=== PATIENT | male | born 1945 | race African-American/Black ===

== ENCOUNTER 2022-06-23 11:57 | Day surgery (SDC) | payer OTHER ==
[2022-06-23 12:27] VITALS: RESP 18; BMI 21.7
[2022-06-23 13:01] VITALS: TEMP 98.1
[2022-06-23 13:32] VITALS: BP 123/78; PULSE 77
== END 2022-06-23 13:44 | disposition home or self-care (01) ==
LOC: FASU-ENDO 11:57
PROVIDERS: ATTEND Internal Medicine Gastroenterology
PROC: 0DB68ZX Excision of Stomach, Via Natural or Artificial Opening Endoscopic, Diagnostic (ICD-10-PCS; 2022-06-23)
PROC: 0DB98ZX Excision of Duodenum, Via Natural or Artificial Opening Endoscopic, Diagnostic (ICD-10-PCS; principal; 2022-06-23 12:42)
DX: D64.9 Anemia, unspecified (principal); I85.00 Esophageal varices without bleeding; K29.50 Unspecified chronic gastritis without bleeding
CPT/HCPCS: 88305-TC; 88342-TC

== ENCOUNTER 2022-09-20 10:11 | Inpatient (IN) | payer OTHER ==
[2022-09-20] MEDS ORDERED: SODIUM CHLORIDE 1,000 ML IV STA (10:56)
[2022-09-20 11:48] LABS: BASO % 2.3 % (0-2.0); EOS % 3.3 % (0-4.5); HEMATOCRIT 35.4 % (35.4-49); HEMOGLOBIN 11.7 GM/dL (11.7-16.9); LYMPH % 17.5 % (8-40); MCH 28.4 pg (25.7-33.7); MCHC 33.1 g/dl (32.0-35.9); MEAN CELL VOLUME 85.8 fl (80-96); MEAN PLT VOLUME 7.7 fl (7.5-11.1); MONO % 10.7 % (3.8-10.2); NEUT % 66.2 % (42.8-82.8); PLATELET COUNT 235 10^3/uL (134-434); RBC 4.13 M/mm3 (4.00-5.60); RDW 17.7 % (11.9-15.9)
[2022-09-20 11:50] LABS: VENOUS BASE EXCESS -3.5 mmol/L (-2-2); VENOUS O2 SATURATION 96.8 % (70-80); VENOUS PCO2 27.1 mmHg (38-52); VENOUS PH 7.462 (7.310-7.410)
[2022-09-20 12:27] LABS: ALBUMIN 2.3 g/dl (3.4-5.0); CALCIUM 9.7 mg/dL (8.5-10.1); CREATININE 0.8 mg/dL (0.55-1.3); TOT PROT 7.3 g/dl (6.4-8.2)
[2022-09-20] MEDS ORDERED: DEXTROSE 5%-0.45% SALINE 1,000 ML IV ONE ×2 (12:46→12:53)
[2022-09-20] MEDS ORDERED: ACETAMINOPHEN 325 MG TABLET (FP) PO PRN (16:33)
[2022-09-20 16:35] LABS: EPI CELLS 8 /uL (0-25.1); HYALINE CASTS 3 /uL (0-3.1); PH,URINE 6.5 (5.0-8.0); URINE APPEARANCE TURBID; URINE BACTERIA 2024 /uL (0-1359); URINE BILIRUBIN NEGATIVE (NEGATIVE); URINE COLOR YELLOW; URINE GLUCOSE (UA) NEGATIVE (NEGATIVE); URINE KETONE NEGATIVE (NEGATIVE); URINE LEUK ESTERASE 3+ (NEGATIVE); URINE NITRITE NEGATIVE (NEGATIVE); URINE PROTEIN 3+ (NEGATIVE); URINE RBC 189 /uL (0-23.9); URINE WBC 11191 /uL (0-25.8)
[2022-09-20] MEDS ORDERED: PIPERACILLIN/TAZOB 2.25 GM 2.25 GM in DEXTROSE 5%-WATER - 50 ML IVPB SCH (17:00)
[2022-09-20] MEDS: PIPERACILLIN/TAZOB 2.25 GM 2.25 GM in DEXTROSE 5%-WATER - 50 ML IVPB SCH (20:16)
[2022-09-21 01:00] VITALS: BMI 17.4
[2022-09-21] MEDS: PIPERACILLIN/TAZOB 2.25 GM 2.25 GM in DEXTROSE 5%-WATER - 50 ML IVPB SCH ×3 (01:43→17:29)
[2022-09-21] MEDS ORDERED: PIPERACILLIN/TAZOB 2.25 GM 2.25 GM in DEXTROSE 5%-WATER - 50 ML IVPB ONE (12:00)
[2022-09-21] MEDS: PANTOPRAZOLE 40 MG TABLET PO SCH (12:02)
[2022-09-21] MEDS: DEXTROSE 5%-0.45% SALINE 1,000 ML IV SCH (12:03)
[2022-09-21] MEDS: ENOXAPARIN NA (PORCINE) 40 MG/0.4 ML DISP.SYRIN SQ SCH (12:06)
[2022-09-21 12:46] LABS: CALCIUM 8.9 mg/dL (8.5-10.1)
[2022-09-21 12:47] LABS: BLOOD UREA NITROGEN 19.9 mg/dL (7-18)
[2022-09-21 12:50] LABS: CREATININE 0.9 mg/dL (0.55-1.3)
[2022-09-21] MEDS: CEFEPIME 1 GM in DEXTROSE 5%-WATER 100 ML IVPB SCH (17:28)
[2022-09-22] MEDS: CEFEPIME 1 GM in DEXTROSE 5%-WATER 100 ML IVPB SCH ×3 (02:06→18:06)
[2022-09-22] MEDS: PIPERACILLIN/TAZOB 2.25 GM 2.25 GM in DEXTROSE 5%-WATER - 50 ML IVPB SCH ×2 (08:05→08:06)
[2022-09-22] MEDS: ENOXAPARIN NA (PORCINE) 40 MG/0.4 ML DISP.SYRIN SQ SCH (10:01)
[2022-09-22] MEDS: PANTOPRAZOLE 40 MG TABLET PO SCH (10:02)
[2022-09-22] MEDS: DEXTROSE 5%-0.45% SALINE 1,000 ML IV SCH (10:09)
[2022-09-22] MEDS ORDERED: POTASSIUM CHLORIDE TABS 20 MEQ TABLET.ER (FP) PO ONE ×2 (13:59→16:30)
[2022-09-22] MEDS ORDERED: DEXTROSE 5%-WATER - 1,000 ML with POTASSIUM CHLORIDE 20 MEQ IV SCH (14:00)
[2022-09-22 14:10] LABS: CALCIUM 8.5 mg/dL (8.5-10.1)
[2022-09-22 14:11] LABS: BLOOD UREA NITROGEN 15.5 mg/dL (7-18)
[2022-09-22 14:14] LABS: CREATININE 0.7 mg/dL (0.55-1.3)
[2022-09-22] MEDS: DEXTROSE 5%-WATER - 1,000 ML with POTASSIUM CHLORIDE 20 MEQ IV SCH (16:20)
[2022-09-23] MEDS: CEFEPIME 1 GM in DEXTROSE 5%-WATER 100 ML IVPB SCH ×3 (01:28→17:24)
[2022-09-23] MEDS: DEXTROSE 5%-WATER - 1,000 ML with POTASSIUM CHLORIDE 20 MEQ IV SCH ×2 (05:03→18:05)
[2022-09-23] MEDS: ENOXAPARIN NA (PORCINE) 40 MG/0.4 ML DISP.SYRIN SQ SCH (09:37)
[2022-09-23] MEDS: ASCORBIC ACID 250 MG TABLET (FP) PO SCH (09:38)
[2022-09-23] MEDS: MULTIVITAMINS (DAILY MVI) TABLET (FP) PO SCH (09:38)
[2022-09-23] MEDS: PANTOPRAZOLE 40 MG TABLET PO SCH (09:38)
[2022-09-24] MEDS: CEFEPIME 1 GM in DEXTROSE 5%-WATER 100 ML IVPB SCH ×2 (01:40→10:10)
[2022-09-24] MEDS: DEXTROSE 5%-WATER - 1,000 ML with POTASSIUM CHLORIDE 20 MEQ IV SCH ×2 (05:26→22:14)
[2022-09-24 10:08] LABS: CALCIUM 8.7 mg/dL (8.5-10.1)
[2022-09-24] MEDS: ENOXAPARIN NA (PORCINE) 40 MG/0.4 ML DISP.SYRIN SQ SCH (10:10)
[2022-09-24] MEDS: ASCORBIC ACID 250 MG TABLET (FP) PO SCH (10:11)
[2022-09-24] MEDS: PANTOPRAZOLE 40 MG TABLET PO SCH (10:11)
[2022-09-24] MEDS: MULTIVITAMINS (DAILY MVI) TABLET (FP) PO SCH (10:11)
[2022-09-24 10:12] LABS: CREATININE 0.6 mg/dL (0.55-1.3)
[2022-09-24] MEDS: CEFTRIAXONE 1 GM in DEXTROSE 5%-WATER - 50 ML IVPB SCH (17:30)
[2022-09-25] MEDS: DEXTROSE 5%-WATER - 1,000 ML with POTASSIUM CHLORIDE 20 MEQ IV SCH (03:18)
[2022-09-25] MEDS: CEFTRIAXONE 1 GM in DEXTROSE 5%-WATER - 50 ML IVPB SCH (09:29)
[2022-09-25] MEDS: ENOXAPARIN NA (PORCINE) 40 MG/0.4 ML DISP.SYRIN SQ SCH (09:29)
[2022-09-25] MEDS: PANTOPRAZOLE 40 MG TABLET PO SCH (09:29)
[2022-09-25] MEDS: MULTIVITAMINS (DAILY MVI) TABLET (FP) PO SCH (09:30)
[2022-09-25] MEDS: ASCORBIC ACID 250 MG TABLET (FP) PO SCH (09:30)
[2022-09-25] MEDS: D5-1/2NS+20 MEQ KCL - 20 MEQ/1,000 ML INFUS.BAG IV SCH (12:00)
[2022-09-26 07:25] VITALS: RESP 18
[2022-09-26] MEDS: D5-1/2NS+20 MEQ KCL - 20 MEQ/1,000 ML INFUS.BAG IV SCH ×2 (07:55→12:06)
[2022-09-26] MEDS: CEFTRIAXONE 1 GM in DEXTROSE 5%-WATER - 50 ML IVPB SCH (11:23)
[2022-09-26] MEDS: ENOXAPARIN NA (PORCINE) 40 MG/0.4 ML DISP.SYRIN SQ SCH (11:23)
[2022-09-26] MEDS: ASCORBIC ACID 250 MG TABLET (FP) PO SCH (11:23)
[2022-09-26] MEDS: PANTOPRAZOLE 40 MG TABLET PO SCH (11:23)
[2022-09-26] MEDS: MULTIVITAMINS (DAILY MVI) TABLET (FP) PO SCH (11:23)
[2022-09-26 13:09] LABS: BLOOD UREA NITROGEN 7.3 mg/dL (7-18); CALCIUM 8.7 mg/dL (8.5-10.1)
[2022-09-26 13:13] LABS: CREATININE 0.6 mg/dL (0.55-1.3)
[2022-09-26 13:14] LABS: BILIRUBIN,TOTAL 0.6 mg/dL (0.2-1); TOT PROT 6.5 g/dl (6.4-8.2)
[2022-09-26 20:41] VITALS: BP 120/52; PULSE 75; TEMP 97
== END 2022-09-26 21:26 | DRG 640 ==
LOC: JER 10:11 → JERBED 13:43 → J5S 18:45
PROVIDERS: ADMIT Internal Medicine; ATTEND Internal Medicine
DX: E87.0 Hyperosmolality and hypernatremia (principal); E43 Unspecified severe protein-calorie malnutrition; G93.41 Metabolic encephalopathy; R53.2 Functional quadriplegia; R64 Cachexia; Z68.1 Body mass index [BMI] 19.9 or less, adult; N39.0 Urinary tract infection, site not specified; E87.6 Hypokalemia; E86.0 Dehydration; F32.A Depression, unspecified; F03.90 Unspecified dementia, unspecified severity, without behavioral disturbance, psychotic disturbance, mood disturbance, and anxiety; D50.9 Iron deficiency anemia, unspecified
CPT/HCPCS: 0241U-QW; 36415; 70450-TC; 71045-TC-FY; 80048; 80053; 81003; 82803; 82962; 83605; 83735; 84484; 85025; 87040; 87077; 87086; 93005; 93010; 97116-GP; 99285-25; C9803-CS; U0003; U0005

== ENCOUNTER 2022-11-06 14:41 | Inpatient (IN) | payer OTHER ==
[2022-11-06 15:53] VITALS: BMI 17.3
[2022-11-06] MEDS ORDERED: RAPID SEQUENCE INTUBATION KIT NR ONE (17:37)
[2022-11-06] MEDS ORDERED: MIDAZOLAM IN 0.9 % SOD.CHLORID 1 MG/1 ML PLAST..BAG ONE (17:59)
[2022-11-06] MEDS ORDERED: MIDAZOLAM IN 0.9 % SOD.CHLORID 100 MG/100 ML PLAST..BAG IVPB SCH (18:00)
[2022-11-06] MEDS ORDERED: SODIUM CHLORIDE 0.9% 500 ML INFUS.BAG IV ONE (18:14)
[2022-11-06] MEDS ORDERED: ACETAMINOPHEN 1000 MG/100 ML BAG IVPB ONE (18:14)
[2022-11-06 18:22] LABS: VENOUS BASE EXCESS -13.1 mmol/L (-2-2); VENOUS O2 SATURATION 86.7 % (70-80); VENOUS PCO2 28.4 mmHg (38-52); VENOUS PH 7.26 (7.310-7.410)
[2022-11-06 18:28] LABS: INR 1.63 (0.83-1.09); PROTHROMBIN TIME (PATIENT) 18.8 SEC (9.7-13.0)
[2022-11-06] MEDS ORDERED: ACETAMINOPHEN INJECTION 100 ML IVPB ONE (18:30)
[2022-11-06 18:31] LABS: ACTIVATED PTT 28.4 SECONDS (25.2-36.5)
[2022-11-06 18:33] LABS: HEMATOCRIT 41.6 % (35.4-49); HEMOGLOBIN 12.8 GM/dL (11.7-16.9); MCH 26.8 pg (25.7-33.7); MCHC 30.7 g/dl (32.0-35.9); MEAN CELL VOLUME 87.2 fl (80-96); PLATELET COUNT 113 10^3/uL (134-434); RBC 4.77 M/mm3 (4.00-5.60); RDW 19.7 % (11.9-15.9); WHITE BLOOD COUNT 17.1 K/mm3 (4.0-10.0)
[2022-11-06] MEDS ORDERED: CEFEPIME HCL/D5W 2 GM/50 ML BAG IVPB ONE (18:43)
[2022-11-06] MEDS ORDERED: VANCOMYCIN 1 GM in D5W (PRE-DOCKED) 1,000 MG/250 ML IVPB ONE (18:43)
[2022-11-06 18:45] LABS: CHLORIDE 126 mmol/L (98-107)
[2022-11-06 18:47] LABS: BLOOD UREA NITROGEN 33.4 mg/dL (7-18); CALCIUM 8.3 mg/dL (8.5-10.1)
[2022-11-06 18:48] LABS: ALBUMIN 1.5 g/dl (3.4-5.0); CO2 15 mmol/L (21-32); GLUCOSE,RANDOM 109 mg/dL (74-106)
[2022-11-06 18:51] LABS: CREATININE 1.5 mg/dL (0.55-1.3); SGOT/AST 53 U/L (15-37); SGPT/ALT 25 U/L (13-61)
[2022-11-06] MEDS ORDERED: CEFEPIME 2 GM/100 ML BAG IVPB ONE (18:51)
[2022-11-06 18:52] LABS: BILIRUBIN,TOTAL 2.6 mg/dL (0.2-1); TOT PROT 5.7 g/dl (6.4-8.2)
[2022-11-06 18:53] LABS: ALK PHOS 132 U/L (45-117)
[2022-11-06 18:56] LABS: N-TERMINAL BNP 2546.8 pg/ml (5-450)
[2022-11-06 19:14] LABS: LACTIC ACID 14.5 mmol/L (0.4-2.0)
[2022-11-06 19:16] LABS: ANION GAP 20 MMOL/L (8-16); SODIUM 161 mmol/L (136-145)
[2022-11-06 19:29] LABS: EPI CELLS 6 /uL (0-25.1); HYALINE CASTS 0 /uL (0-3.1); URINE APPEARANCE CLOUDY; URINE BACTERIA >9,000 /uL (0-1359); URINE BILIRUBIN 1+ (NEGATIVE); URINE COLOR DK YELLOW; URINE GLUCOSE (UA) NEGATIVE (NEGATIVE); URINE KETONE NEGATIVE (NEGATIVE); URINE LEUK ESTERASE 1+ (NEGATIVE); URINE NITRITE NEGATIVE (NEGATIVE); URINE PROTEIN TRACE (NEGATIVE); URINE RBC 12 /uL (0-23.9); URINE WBC 66 /uL (0-25.8)
[2022-11-06] MEDS ORDERED: VANCOMYCIN/WATER FOR INJ (PEG) 1,000 MG/200 ML BAG IVPB ONE (19:39)
[2022-11-06] MEDS ORDERED: POTASSIUM CHLORIDE 10 MEQ in SODIUM CHLORIDE 0.45% 1,000 ML IVPB SCH (20:45)
[2022-11-06 20:51] LABS: ANISOCYTOSIS 2+; MACROCYTOSIS 0
[2022-11-06] MEDS ORDERED: SODIUM CHLORIDE 0.45% 1,000 ML IV SCH (21:15)
[2022-11-06] MEDS: SODIUM CHLORIDE 0.45% 1,000 ML IV SCH (22:38)
[2022-11-06] MEDS ORDERED: DEXAMETHASONE SOD PHOSPHATE 10 MG/1 ML VIAL ONE (23:26)
[2022-11-06] MEDS: DEXAMETHASONE SOD PHOSPHATE 10 MG/1 ML VIAL IVPUSH SCH (23:29)
[2022-11-06 23:33] LABS: BLOOD UREA NITROGEN 36.8 mg/dL (7-18); CALCIUM 7.8 mg/dL (8.5-10.1)
[2022-11-06 23:37] LABS: CREATININE 1.6 mg/dL (0.55-1.3)
[2022-11-06 23:44] LABS: LACTIC ACID 9.9 mmol/L (0.4-2.0)
[2022-11-07] MEDS ORDERED: LORazepam 2 MG/ML SDV VIAL IVPUSH PRN (00:36)
[2022-11-07] MEDS ORDERED: PIPERACILLIN/TAZOB 2.25 GM 2.25 GM/50 ML BAG IVPB ONE (00:55)
[2022-11-07] MEDS ORDERED: PIPERACILLIN/TAZOB 2.25 GM 2.25 GM in DEXTROSE 5%-WATER - 50 ML IVPB SCH (01:00)
[2022-11-07] MEDS ORDERED: REMDESIVIR 200 MG in SODIUM CHLORIDE 250 ML IVPB ONE ×3 (01:00→14:00)
[2022-11-07] MEDS: PIPERACILLIN/TAZOB 2.25 GM 2.25 GM in DEXTROSE 5%-WATER - 50 ML IVPB SCH ×3 (01:44→15:57)
[2022-11-07 06:46] LABS: ARTERIAL BLD GAS O2 SATURATION 99.8 % (95-98); ARTERIAL BLOOD GAS BASE EXCESS -4.6 mmol/L (-2-2); ARTERIAL BLOOD GAS PO2 358.5 mmHg (80-100); ARTERIAL BLOOD GAS pH 7.405 (7.350-7.450)
[2022-11-07 07:04] LABS: ALLENS TEST POSITIVE; VENT MODE A/C; VENT RATE 14
[2022-11-07 07:19] LABS: HEMATOCRIT 33.5 % (35.4-49); HEMOGLOBIN 10.6 GM/dL (11.7-16.9); MCH 26.9 pg (25.7-33.7); MCHC 31.6 g/dl (32.0-35.9); MEAN CELL VOLUME 85.3 fl (80-96); MEAN PLT VOLUME 9.3 fl (7.5-11.1); PLATELET COUNT 76 10^3/uL (134-434); RBC 3.93 M/mm3 (4.00-5.60); RDW 19.8 % (11.9-15.9); WHITE BLOOD COUNT 14.2 K/mm3 (4.0-10.0)
[2022-11-07 07:30] LABS: INR 2.05 (0.83-1.09); PROTHROMBIN TIME (PATIENT) 23.7 SEC (9.7-13.0)
[2022-11-07 07:33] LABS: ACTIVATED PTT 34.1 SECONDS (25.2-36.5)
[2022-11-07 08:15] LABS: CALCIUM 7.3 mg/dL (8.5-10.1)
[2022-11-07 08:16] LABS: ALBUMIN 1.3 g/dl (3.4-5.0); BLOOD UREA NITROGEN 44.6 mg/dL (7-18); MAGNESIUM 2.1 mg/dL (1.8-2.4)
[2022-11-07 08:19] LABS: CREATININE 1.6 mg/dL (0.55-1.3)
[2022-11-07 08:20] LABS: BILIRUBIN,TOTAL 2.3 mg/dL (0.2-1)
[2022-11-07 09:00] LABS: ANISOCYTOSIS 1+; MACROCYTOSIS 0
[2022-11-07] MEDS: KCL 10 MEQ IVPB 10 MEQ/100 ML INFUS.BAG IVPB SCH ×3 (09:14→12:29)
[2022-11-07] MEDS ORDERED: ENOXAPARIN NA (PORCINE) 40 MG/0.4 ML DISP.SYRIN SQ SCH (10:00)
[2022-11-07] MEDS: PANTOPRAZOLE SODIUM 40 MG VIAL IVPUSH SCH (10:26)
[2022-11-07] MEDS: THIAMINE HCL 200 MG/2 ML VIAL IVPB SCH (10:26)
[2022-11-07] MEDS: FOLIC ACID 1 MG TABLET (FP) PO SCH (10:28)
[2022-11-07] MEDS: DEXAMETHASONE SOD PHOSPHATE 10 MG/1 ML VIAL IVPUSH SCH (10:30)
[2022-11-07] MEDS ORDERED: VANCOMYCIN 1 GM/200 ML PREMIX BAG (RESTRICTED TO ID ONLY) IVPB ONE (16:00)
[2022-11-07] MEDS: CEFTRIAXONE 1 GM in DEXTROSE 5%-WATER - 50 ML IVPB SCH (17:45)
[2022-11-07] MEDS: MUPIROCIN 2% TOPICAL OINTMENT FOR DECOLONIZATION NS SCH (21:20)
[2022-11-07] MEDS: CHLORHEXIDINE GLUCONATE 4% CLEANSER FOR DECOLONIZATION TP SCH (21:21)
[2022-11-08] MEDS: SODIUM CHLORIDE 0.45% 1,000 ML IV SCH (00:10)
[2022-11-08] MEDS: HEPARIN NA (PORCINE) 5,000 UNITS/ML 1ML VIAL SQ SCH ×3 (06:17→22:40)
[2022-11-08 06:28] LABS: ARTERIAL BLD GAS O2 SATURATION 88.9 % (95-98); ARTERIAL BLOOD GAS BASE EXCESS -3.8 mmol/L (-2-2); ARTERIAL BLOOD GAS PO2 56.5 mmHg (80-100); ARTERIAL BLOOD GAS pH 7.372 (7.350-7.450)
[2022-11-08 06:31] LABS: ALLENS TEST POSITIVE; VENT MODE A/C; VENT RATE 14
[2022-11-08 07:26] LABS: HEMATOCRIT 33.6 % (35.4-49); HEMOGLOBIN 10.9 GM/dL (11.7-16.9); MCH 27.3 pg (25.7-33.7); MCHC 32.4 g/dl (32.0-35.9); MEAN CELL VOLUME 84.3 fl (80-96); MEAN PLT VOLUME 9.9 fl (7.5-11.1); PLATELET COUNT 60 10^3/uL (134-434); RBC 3.98 M/mm3 (4.00-5.60); RDW 20.3 % (11.9-15.9); WHITE BLOOD COUNT 8.3 K/mm3 (4.0-10.0)
[2022-11-08 07:57] LABS: ALBUMIN 1.2 g/dl (3.4-5.0); BLOOD UREA NITROGEN 48.7 mg/dL (7-18); MAGNESIUM 2.2 mg/dL (1.8-2.4)
[2022-11-08 08:00] LABS: CREATININE 1.2 mg/dL (0.55-1.3); PHOSPHOROUS 3.2 mg/dL (2.5-4.9)
[2022-11-08 08:01] LABS: BILIRUBIN,TOTAL 1.9 mg/dL (0.2-1)
[2022-11-08 08:02] LABS: TOT PROT 4.9 g/dl (6.4-8.2)
[2022-11-08] MEDS: PANTOPRAZOLE SODIUM 40 MG VIAL IVPUSH SCH (09:20)
[2022-11-08] MEDS: DEXAMETHASONE SOD PHOSPHATE 10 MG/1 ML VIAL IVPUSH SCH (09:20)
[2022-11-08] MEDS: FOLIC ACID 1 MG TABLET (FP) PO SCH (09:20)
[2022-11-08] MEDS: THIAMINE HCL 200 MG/2 ML VIAL IVPB SCH (09:21)
[2022-11-08] MEDS: CEFTRIAXONE 1 GM in DEXTROSE 5%-WATER - 50 ML IVPB SCH (09:21)
[2022-11-08 09:25] LABS: ANISOCYTOSIS 1+
[2022-11-08] MEDS: MUPIROCIN 2% TOPICAL OINTMENT FOR DECOLONIZATION NS SCH ×2 (09:27→23:09)
[2022-11-08] MEDS: REMDESIVIR 100 MG in SODIUM CHLORIDE 250 ML IVPB SCH (09:58)
[2022-11-08] MEDS: SODIUM CHLORIDE 0.45%/POT 20 MEQ/1,000 ML INFUS.BAG IV SCH (11:28)
[2022-11-08] MEDS ORDERED: VANCOMYCIN 1 GM/200 ML PREMIX BAG (RESTRICTED TO ID ONLY) IVPB ONE (12:00)
[2022-11-08] MEDS: CHLORHEXIDINE GLUCONATE 4% CLEANSER FOR DECOLONIZATION TP SCH (23:09)
[2022-11-09] MEDS: SODIUM CHLORIDE 0.45%/POT 20 MEQ/1,000 ML INFUS.BAG IV SCH ×3 (02:58→20:27)
[2022-11-09] MEDS: HEPARIN NA (PORCINE) 5,000 UNITS/ML 1ML VIAL SQ SCH ×3 (06:08→22:42)
[2022-11-09 06:17] LABS: ARTERIAL BLD GAS O2 SATURATION 97.7 % (95-98); ARTERIAL BLOOD GAS BASE EXCESS -3.4 mmol/L (-2-2)
[2022-11-09 06:48] LABS: ALLENS TEST POSITIVE
[2022-11-09 06:49] LABS: VENT MODE V/AC; VENT RATE 14
[2022-11-09 07:36] LABS: BASO % 0.2 % (0-2.0); HEMATOCRIT 31.5 % (35.4-49); LYMPH % 6.7 % (8-40); MCH 26.7 pg (25.7-33.7); MCHC 31.9 g/dl (32.0-35.9); MEAN CELL VOLUME 83.7 fl (80-96); MEAN PLT VOLUME 10.1 fl (7.5-11.1); NEUT % 89.1 % (42.8-82.8); PLATELET COUNT 62 10^3/uL (134-434); RBC 3.76 M/mm3 (4.00-5.60); RDW 19.8 % (11.9-15.9); WHITE BLOOD COUNT 7.2 K/mm3 (4.0-10.0)
[2022-11-09 07:53] LABS: ALBUMIN 1.2 g/dl (3.4-5.0); BLOOD UREA NITROGEN 51.1 mg/dL (7-18); MAGNESIUM 2.2 mg/dL (1.8-2.4)
[2022-11-09 07:56] LABS: CREATININE 1.1 mg/dL (0.55-1.3); PHOSPHOROUS 3.4 mg/dL (2.5-4.9)
[2022-11-09 07:57] LABS: TOT PROT 4.8 g/dl (6.4-8.2)
[2022-11-09 08:30] LABS: BILIRUBIN,TOTAL 2.1 mg/dL (0.2-1)
[2022-11-09] MEDS: MUPIROCIN 2% TOPICAL OINTMENT FOR DECOLONIZATION NS SCH ×2 (09:24→22:42)
[2022-11-09] MEDS: PANTOPRAZOLE SODIUM 40 MG VIAL IVPUSH SCH (09:25)
[2022-11-09] MEDS: CEFTRIAXONE 1 GM in DEXTROSE 5%-WATER - 50 ML IVPB SCH (09:25)
[2022-11-09] MEDS: FOLIC ACID 1 MG TABLET (FP) PO SCH (09:25)
[2022-11-09] MEDS: DEXAMETHASONE SOD PHOSPHATE 10 MG/1 ML VIAL IVPUSH SCH (09:25)
[2022-11-09] MEDS: THIAMINE HCL 200 MG/2 ML VIAL IVPB SCH (09:25)
[2022-11-09] MEDS: REMDESIVIR 100 MG in SODIUM CHLORIDE 250 ML IVPB SCH (10:57)
[2022-11-09] MEDS: VANCOMYCIN/WATER FOR INJ (PEG) 1,000 MG/200 ML BAG IVPB SCH (15:29)
[2022-11-09] MEDS: CHLORHEXIDINE GLUCONATE 4% CLEANSER FOR DECOLONIZATION TP SCH (22:42)
[2022-11-10] MEDS: VANCOMYCIN/WATER FOR INJ (PEG) 1,000 MG/200 ML BAG IVPB SCH (03:45)
[2022-11-10] MEDS: HEPARIN NA (PORCINE) 5,000 UNITS/ML 1ML VIAL SQ SCH ×3 (05:45→22:08)
[2022-11-10 06:28] LABS: ARTERIAL BLD GAS O2 SATURATION 98.8 % (95-98); ARTERIAL BLOOD GAS BASE EXCESS -4.3 mmol/L (-2-2); ARTERIAL BLOOD GAS PO2 138.8 mmHg (80-100); ARTERIAL BLOOD GAS pH 7.399 (7.350-7.450)
[2022-11-10 07:18] LABS: ALLENS TEST POSITIVE; VENT MODE A/C; VENT RATE 14
[2022-11-10 08:12] LABS: BASO % 0.1 % (0-2.0); HEMOGLOBIN 9.8 GM/dL (11.7-16.9); LYMPH % 4.3 % (8-40); MCH 27.3 pg (25.7-33.7); MCHC 32.6 g/dl (32.0-35.9); MEAN CELL VOLUME 83.8 fl (80-96); MEAN PLT VOLUME 10.9 fl (7.5-11.1); MONO % 5.6 % (3.8-10.2); PLATELET COUNT 61 10^3/uL (134-434); RBC 3.58 M/mm3 (4.00-5.60); RDW 20.3 % (11.9-15.9); WHITE BLOOD COUNT 7.4 K/mm3 (4.0-10.0)
[2022-11-10 08:29] LABS: CALCIUM 7.1 mg/dL (8.5-10.1)
[2022-11-10 08:30] LABS: ALBUMIN 1.1 g/dl (3.4-5.0); BLOOD UREA NITROGEN 45.3 mg/dL (7-18); MAGNESIUM 2.4 mg/dL (1.8-2.4)
[2022-11-10 08:33] LABS: CREATININE 0.9 mg/dL (0.55-1.3); PHOSPHOROUS 2.4 mg/dL (2.5-4.9)
[2022-11-10 08:34] LABS: BILIRUBIN,TOTAL 1.7 mg/dL (0.2-1); TOT PROT 4.4 g/dl (6.4-8.2)
[2022-11-10 08:39] LABS: LACTIC ACID 2.4 mmol/L (0.4-2.0)
[2022-11-10] MEDS: FOLIC ACID 1 MG TABLET (FP) PO SCH (09:21)
[2022-11-10] MEDS: MUPIROCIN 2% TOPICAL OINTMENT FOR DECOLONIZATION NS SCH ×2 (09:21→22:08)
[2022-11-10] MEDS: DEXAMETHASONE SOD PHOSPHATE 10 MG/1 ML VIAL IVPUSH SCH (09:21)
[2022-11-10] MEDS: THIAMINE HCL 200 MG/2 ML VIAL IVPB SCH (09:22)
[2022-11-10] MEDS: PANTOPRAZOLE SODIUM 40 MG VIAL IVPUSH SCH (09:22)
[2022-11-10] MEDS: REMDESIVIR 100 MG in SODIUM CHLORIDE 250 ML IVPB SCH (09:22)
[2022-11-10] MEDS: ARTIFICIAL TEARS (POLYVINYL ALCOHOL) OPTH DROPS OU PRN (10:14)
[2022-11-10] MEDS ORDERED: SODIUM CHLORIDE 0.45% 500 ML IV SCH (13:15)
[2022-11-10] MEDS: ATORVASTATIN CA 40 MG TABLET (FP) NGT SCH (14:51)
[2022-11-10] MEDS ORDERED: levETIRAcetam 500 MG/5 ML INJECTION VIAL IVPB SCH ×2 (17:37→22:00)
[2022-11-10] MEDS: SODIUM CHLORIDE 0.45%/POT 20 MEQ/1,000 ML INFUS.BAG IV SCH (18:10)
[2022-11-10 19:25] LABS: CALCIUM 7.5 mg/dL (8.5-10.1)
[2022-11-10 19:26] LABS: BLOOD UREA NITROGEN 40.2 mg/dL (7-18)
[2022-11-10 19:29] LABS: CREATININE 0.9 mg/dL (0.55-1.3)
[2022-11-10] MEDS: levETIRAcetam 500 MG/5 ML INJECTION VIAL IVPB SCH ×2 (19:40→22:07)
[2022-11-10] MEDS: CHLORHEXIDINE GLUCONATE 4% CLEANSER FOR DECOLONIZATION TP SCH (22:08)
[2022-11-11] MEDS: ARTIFICIAL TEARS (POLYVINYL ALCOHOL) OPTH DROPS OU PRN (01:10)
[2022-11-11] MEDS: HEPARIN NA (PORCINE) 5,000 UNITS/ML 1ML VIAL SQ SCH ×3 (05:00→21:21)
[2022-11-11 07:16] LABS: CALCIUM 7.6 mg/dL (8.5-10.1)
[2022-11-11 07:17] LABS: ALBUMIN 1.3 g/dl (3.4-5.0); BLOOD UREA NITROGEN 37.9 mg/dL (7-18); MAGNESIUM 2.4 mg/dL (1.8-2.4)
[2022-11-11 07:20] LABS: CREATININE 0.9 mg/dL (0.55-1.3); PHOSPHOROUS 2.1 mg/dL (2.5-4.9)
[2022-11-11 07:21] LABS: BILIRUBIN,TOTAL 2.3 mg/dL (0.2-1); TOT PROT 5.6 g/dl (6.4-8.2)
[2022-11-11 07:52] LABS: HEMOGLOBIN 12.3 GM/dL (11.7-16.9); MCHC 32.3 g/dl (32.0-35.9); MEAN CELL VOLUME 83.7 fl (80-96); MEAN PLT VOLUME 9.9 fl (7.5-11.1); PLATELET COUNT 86 10^3/uL (134-434); RBC 4.54 M/mm3 (4.00-5.60); RDW 20.3 % (11.9-15.9); WHITE BLOOD COUNT 14.3 K/mm3 (4.0-10.0)
[2022-11-11] MEDS: PANTOPRAZOLE SODIUM 40 MG VIAL IVPUSH SCH (09:09)
[2022-11-11] MEDS: THIAMINE HCL 200 MG/2 ML VIAL IVPB SCH (09:09)
[2022-11-11] MEDS: FOLIC ACID 1 MG TABLET (FP) PO SCH (09:09)
[2022-11-11] MEDS: levETIRAcetam 500 MG/5 ML INJECTION VIAL IVPB SCH ×2 (09:09→21:22)
[2022-11-11] MEDS: MUPIROCIN 2% TOPICAL OINTMENT FOR DECOLONIZATION NS SCH ×2 (09:09→21:21)
[2022-11-11] MEDS: DEXAMETHASONE SOD PHOSPHATE 10 MG/1 ML VIAL IVPUSH SCH (09:09)
[2022-11-11 09:47] LABS: ANISOCYTOSIS 2+; MACROCYTOSIS 0; OVALOCYTE 1+; TEAR DROP CELLS 1+
[2022-11-11] MEDS: REMDESIVIR 100 MG in SODIUM CHLORIDE 250 ML IVPB SCH (10:23)
[2022-11-11] MEDS ORDERED: INSULIN (LEVEMIR) 100 UNITS/ML UNITS SQ ONE (12:31)
[2022-11-11] MEDS: VANCOMYCIN/WATER FOR INJ (PEG) 1,000 MG/200 ML BAG IVPB SCH (14:01)
[2022-11-11] MEDS: INSULIN SLIDING SCALE (NOVOLOG) 1 VIAL SQ SCH (17:37)
[2022-11-11] MEDS: CHLORHEXIDINE GLUCONATE 4% CLEANSER FOR DECOLONIZATION TP SCH (21:21)
[2022-11-11] MEDS: ATORVASTATIN CA 40 MG TABLET (FP) NGT SCH (21:22)
[2022-11-11] MEDS ORDERED: INSULIN (LEVEMIR) 100 UNITS/ML UNITS SQ SCH (22:00)
[2022-11-12] MEDS: VANCOMYCIN/WATER FOR INJ (PEG) 1,000 MG/200 ML BAG IVPB SCH (02:04)
[2022-11-12] MEDS: HEPARIN NA (PORCINE) 5,000 UNITS/ML 1ML VIAL SQ SCH ×3 (05:57→21:13)
[2022-11-12] MEDS: INSULIN SLIDING SCALE (NOVOLOG) 1 VIAL SQ SCH ×2 (06:35→15:57)
[2022-11-12 08:14] LABS: HEMATOCRIT 32.1 % (35.4-49); HEMOGLOBIN 10.5 GM/dL (11.7-16.9); MCH 27.3 pg (25.7-33.7); MCHC 32.6 g/dl (32.0-35.9); MEAN CELL VOLUME 83.6 fl (80-96); MEAN PLT VOLUME 10.7 fl (7.5-11.1); PLATELET COUNT 95 10^3/uL (134-434); RBC 3.84 M/mm3 (4.00-5.60); RDW 20.5 % (11.9-15.9); WHITE BLOOD COUNT 16.4 K/mm3 (4.0-10.0)
[2022-11-12 08:27] LABS: CALCIUM 7.3 mg/dL (8.5-10.1)
[2022-11-12 08:28] LABS: ALBUMIN 1.1 g/dl (3.4-5.0); BLOOD UREA NITROGEN 42.2 mg/dL (7-18); MAGNESIUM 2.4 mg/dL (1.8-2.4)
[2022-11-12 08:30] LABS: BILIRUBIN,DIRECT 1.4 mg/dL (0.0-0.2); CREATININE 0.8 mg/dL (0.55-1.3)
[2022-11-12 08:31] LABS: PHOSPHOROUS 1.5 mg/dL (2.5-4.9)
[2022-11-12 08:34] LABS: TOT PROT 4.6 g/dl (6.4-8.2)
[2022-11-12] MEDS: PANTOPRAZOLE SODIUM 40 MG VIAL IVPUSH SCH (09:05)
[2022-11-12] MEDS: FOLIC ACID 1 MG TABLET (FP) PO SCH (09:05)
[2022-11-12] MEDS: THIAMINE HCL 200 MG/2 ML VIAL IVPB SCH (09:05)
[2022-11-12] MEDS: levETIRAcetam 500 MG/5 ML INJECTION VIAL IVPB SCH ×2 (09:05→21:13)
[2022-11-12] MEDS: MUPIROCIN 2% TOPICAL OINTMENT FOR DECOLONIZATION NS SCH (09:05)
[2022-11-12] MEDS: DEXAMETHASONE SOD PHOSPHATE 10 MG/1 ML VIAL IVPUSH SCH (09:05)
[2022-11-12] MEDS ORDERED: LORazepam 2 MG/ML SDV VIAL IVPUSH PRN (09:23)
[2022-11-12] MEDS: NAPH,MB-DB/K PH,MBDB POWDER PACKET PO SCH ×2 (09:26→15:09)
[2022-11-12] MEDS ORDERED: DEXTROSE 5%-WATER 1000 ML INFUS.BAG IV ONE (09:30)
[2022-11-12] MEDS: METOPROLOL TARTRATE 25 MG TABLET (FP) PO SCH ×2 (10:36→21:14)
[2022-11-12] MEDS ORDERED: INSULIN (LEVEMIR) 100 UNITS/ML UNITS SQ SCH (10:58)
[2022-11-12] MEDS ORDERED: CALCITRIOL 0.25 MCG CAPSULE (FP) PO SCH (11:00)
[2022-11-12] MEDS: REMDESIVIR 100 MG in SODIUM CHLORIDE 250 ML IVPB SCH (11:20)
[2022-11-12] MEDS ORDERED: INSULIN (LEVEMIR) 100 UNITS/ML UNITS SQ ONE (11:40)
[2022-11-12] MEDS: CEFEPIME 1 GM in DEXTROSE 5%-WATER 100 ML IVPB SCH ×2 (15:57→18:09)
[2022-11-12 16:13] LABS: CHLORIDE 111 mmol/L (98-107); SODIUM 137 mmol/L (136-145)
[2022-11-12 16:15] LABS: ANION GAP 8 MMOL/L (8-16); BLOOD UREA NITROGEN 38.5 mg/dL (7-18); CO2 17 mmol/L (21-32)
[2022-11-12 16:18] LABS: CREATININE 1.1 mg/dL (0.55-1.3)
[2022-11-12 16:30] LABS: CALCIUM 6.4 mg/dL (8.5-10.1); GLUCOSE,RANDOM 820 mg/dL (74-106)
[2022-11-12] MEDS: LORazepam 2 MG/ML SDV VIAL IVPUSH PRN (18:09)
[2022-11-12 18:31] LABS: GLUCOSE,RANDOM 482 mg/dL (74-106)
[2022-11-12] MEDS ORDERED: FENTANYL NS IVPB 500 MCG/100 ML BAG IVPB ONE (21:06)
[2022-11-12] MEDS: FENTANYL NS IVPB 500 MCG/100 ML BAG IVPB SCH (21:11)
[2022-11-12] MEDS: INSULIN (LEVEMIR) 100 UNITS/ML UNITS SQ SCH (21:13)
[2022-11-12] MEDS: ATORVASTATIN CA 40 MG TABLET (FP) NGT SCH (21:13)
[2022-11-12] MEDS: CHLORHEXIDINE GLUCONATE 4% CLEANSER FOR DECOLONIZATION TP SCH (21:13)
[2022-11-12] MEDS: VANCOMYCIN/WATER FOR INJ (PEG) 750 MG/150 ML BAG IVPB SCH (21:24)
[2022-11-13] MEDS: CEFEPIME 1 GM in DEXTROSE 5%-WATER 100 ML IVPB SCH ×3 (01:09→17:03)
[2022-11-13 05:57] LABS: ARTERIAL BLOOD GAS BASE EXCESS -6.8 mmol/L (-2-2); ARTERIAL BLOOD GAS PO2 75.8 mmHg (80-100); ARTERIAL BLOOD GAS pH 7.304 (7.350-7.450)
[2022-11-13] MEDS: HEPARIN NA (PORCINE) 5,000 UNITS/ML 1ML VIAL SQ SCH ×3 (05:59→21:00)
[2022-11-13 06:00] LABS: VENT MODE V-A/C; VENT RATE 14
[2022-11-13] MEDS: INSULIN SLIDING SCALE (NOVOLOG) 1 VIAL SQ SCH ×2 (06:10→17:04)
[2022-11-13 06:55] LABS: HEMOGLOBIN 11.8 GM/dL (11.7-16.9); MCH 27.6 pg (25.7-33.7); MCHC 32.6 g/dl (32.0-35.9); MEAN CELL VOLUME 84.6 fl (80-96); MEAN PLT VOLUME 10.2 fl (7.5-11.1); PLATELET COUNT 134 10^3/uL (134-434); RBC 4.26 M/mm3 (4.00-5.60); RDW 21.1 % (11.9-15.9); WHITE BLOOD COUNT 22.4 K/mm3 (4.0-10.0)
[2022-11-13 07:19] LABS: CALCIUM 7.3 mg/dL (8.5-10.1)
[2022-11-13 07:20] LABS: MAGNESIUM 2.4 mg/dL (1.8-2.4)
[2022-11-13 07:23] LABS: CREATININE 1.1 mg/dL (0.55-1.3); PHOSPHOROUS 3.8 mg/dL (2.5-4.9)
[2022-11-13 07:25] LABS: BLOOD UREA NITROGEN 48.3 mg/dL (7-18)
[2022-11-13] MEDS: THIAMINE HCL 200 MG/2 ML VIAL IVPB SCH (09:47)
[2022-11-13] MEDS: FOLIC ACID 1 MG TABLET (FP) PO SCH (09:47)
[2022-11-13] MEDS: levETIRAcetam 500 MG/5 ML INJECTION VIAL IVPB SCH ×2 (09:47→21:00)
[2022-11-13] MEDS: DEXAMETHASONE SOD PHOSPHATE 10 MG/1 ML VIAL IVPUSH SCH (09:47)
[2022-11-13] MEDS: PANTOPRAZOLE SODIUM 40 MG VIAL IVPUSH SCH (09:47)
[2022-11-13] MEDS: METOPROLOL TARTRATE 25 MG TABLET (FP) PO SCH ×2 (09:47→21:02)
[2022-11-13] MEDS: REMDESIVIR 100 MG in SODIUM CHLORIDE 250 ML IVPB SCH (09:56)
[2022-11-13] MEDS: VANCOMYCIN/WATER FOR INJ (PEG) 750 MG/150 ML BAG IVPB SCH ×2 (09:56→21:04)
[2022-11-13] MEDS ORDERED: PROPOFOL 1,000,000 MCG/100 ML VIAL IVPB SCH (10:15)
[2022-11-13 11:36] LABS: ANISOCYTOSIS 2+; MACROCYTOSIS 0
[2022-11-13] MEDS ORDERED: DEXTROSE 5%-0.45% SALINE 1,000 ML IV SCH (12:15)
[2022-11-13] MEDS ORDERED: SODIUM ZIRCONIUM CYCLOSILICATE (LOKELMA) 5 GM PACKET PO SCH (15:30)
[2022-11-13] MEDS: CHLORHEXIDINE GLUCONATE 4% CLEANSER FOR DECOLONIZATION TP SCH (21:00)
[2022-11-13] MEDS: FENTANYL NS IVPB 500 MCG/100 ML BAG IVPB SCH (21:00)
[2022-11-13] MEDS: ATORVASTATIN CA 40 MG TABLET (FP) NGT SCH (21:01)
[2022-11-13] MEDS: INSULIN (LEVEMIR) 100 UNITS/ML UNITS SQ SCH (21:09)
[2022-11-14] MEDS: CEFEPIME 1 GM in DEXTROSE 5%-WATER 100 ML IVPB SCH ×3 (01:03→17:23)
[2022-11-14] MEDS: HEPARIN NA (PORCINE) 5,000 UNITS/ML 1ML VIAL SQ SCH ×3 (05:25→21:16)
[2022-11-14] MEDS: INSULIN SLIDING SCALE (NOVOLOG) 1 VIAL SQ SCH ×3 (06:13→17:23)
[2022-11-14 06:40] LABS: HEMATOCRIT 29.3 % (35.4-49); MCH 26.7 pg (25.7-33.7); MCHC 30.7 g/dl (32.0-35.9); MEAN PLT VOLUME 9.9 fl (7.5-11.1); PLATELET COUNT 81 10^3/uL (134-434); RBC 3.37 M/mm3 (4.00-5.60); RDW 22.3 % (11.9-15.9); WHITE BLOOD COUNT 18.2 K/mm3 (4.0-10.0)
[2022-11-14 06:53] LABS: CHLORIDE 118 mmol/L (98-107); SODIUM 142 mmol/L (136-145)
[2022-11-14 07:01] LABS: ALBUMIN 0.9 g/dl (3.4-5.0); ANION GAP 6 MMOL/L (8-16); BLOOD UREA NITROGEN 71.1 mg/dL (7-18); CO2 19 mmol/L (21-32); MAGNESIUM 2.4 mg/dL (1.8-2.4)
[2022-11-14 07:04] LABS: CREATININE 1.7 mg/dL (0.55-1.3); PHOSPHOROUS 4.4 mg/dL (2.5-4.9); SGOT/AST 52 U/L (15-37); SGPT/ALT 32 U/L (13-61)
[2022-11-14 07:05] LABS: BILIRUBIN,TOTAL 2.2 mg/dL (0.2-1); TOT PROT 4.1 g/dl (6.4-8.2)
[2022-11-14 07:06] LABS: ALK PHOS 147 U/L (45-117)
[2022-11-14] MEDS ORDERED: SODIUM ZIRCONIUM CYCLOSILICATE (LOKELMA) 5 GM PACKET PO ONE (07:13)
[2022-11-14 07:30] LABS: CALCIUM 6.7 mg/dL (8.5-10.1); GLUCOSE,RANDOM 426 mg/dL (74-106)
[2022-11-14] MEDS ORDERED: CALCIUM GLUC IN NACL, ISO-OSM 1 GM/50 ML BAG IVPB ONE (07:36)
[2022-11-14] MEDS: SODIUM CHLORIDE 0.45% 1,000 ML IV SCH (08:08)
[2022-11-14] MEDS: levETIRAcetam 500 MG/5 ML INJECTION VIAL IVPB SCH ×2 (09:36→21:16)
[2022-11-14] MEDS: FOLIC ACID 1 MG TABLET (FP) PO SCH (09:36)
[2022-11-14] MEDS: METOPROLOL TARTRATE 25 MG TABLET (FP) PO SCH ×3 (09:37→22:20)
[2022-11-14] MEDS: REMDESIVIR 100 MG in SODIUM CHLORIDE 250 ML IVPB SCH (09:37)
[2022-11-14] MEDS: THIAMINE HCL 200 MG/2 ML VIAL IVPB SCH (09:37)
[2022-11-14] MEDS: PANTOPRAZOLE SODIUM 40 MG VIAL IVPUSH SCH (09:37)
[2022-11-14] MEDS: VANCOMYCIN/WATER FOR INJ (PEG) 750 MG/150 ML BAG IVPB SCH (13:18)
[2022-11-14] MEDS ORDERED: FENTANYL NS IVPB 500 MCG/100 ML BAG IVPB SCH (17:30)
[2022-11-14] MEDS: FENTANYL NS IVPB 500 MCG/100 ML BAG IVPB SCH (18:51)
[2022-11-14] MEDS: CHLORHEXIDINE GLUCONATE 4% CLEANSER FOR DECOLONIZATION TP SCH (21:16)
[2022-11-14] MEDS: INSULIN (LEVEMIR) 100 UNITS/ML UNITS SQ SCH (21:16)
[2022-11-14] MEDS: ATORVASTATIN CA 40 MG TABLET (FP) NGT SCH (21:17)
[2022-11-15] MEDS: FENTANYL NS IVPB 500 MCG/100 ML BAG IVPB SCH
[2022-11-15] MEDS ORDERED: LORazepam 2 MG/ML SDV VIAL IVPUSH ONE (00:12)
[2022-11-15] MEDS ORDERED: SODIUM CHLORIDE 0.9% 500 ML INFUS.BAG IV ONE (00:13)
[2022-11-15] MEDS ORDERED: NOREPINEPHRINE BITARTRATE 4,000 MCG in DEXTROSE 5%-WATER - 496 ML IV SCH (00:15)
[2022-11-15] MEDS ORDERED: NOREPINEPHRINE BITARTRATE 4 MG/4 ML ML IV ONE (00:20)
[2022-11-15] MEDS: CEFEPIME 1 GM in DEXTROSE 5%-WATER 100 ML IVPB SCH ×2 (01:09→10:00)
[2022-11-15] MEDS: HEPARIN NA (PORCINE) 5,000 UNITS/ML 1ML VIAL SQ SCH ×3 (05:32→21:34)
[2022-11-15] MEDS: INSULIN SLIDING SCALE (NOVOLOG) 1 VIAL SQ SCH ×3 (06:29→18:24)
[2022-11-15] MEDS: LORazepam 2 MG/ML SDV VIAL IVPUSH PRN (06:33)
[2022-11-15 07:37] LABS: HEMATOCRIT 33.6 % (35.4-49); HEMOGLOBIN 10.3 GM/dL (11.7-16.9); MCHC 30.8 g/dl (32.0-35.9); MEAN CELL VOLUME 87.6 fl (80-96); PLATELET COUNT 93 10^3/uL (134-434); RBC 3.84 M/mm3 (4.00-5.60); RDW 21.9 % (11.9-15.9); WHITE BLOOD COUNT 26.5 K/mm3 (4.0-10.0)
[2022-11-15 07:59] LABS: LACTIC ACID 5.8 mmol/L (0.4-2.0)
[2022-11-15 08:01] LABS: CHLORIDE 113 mmol/L (98-107); SODIUM 141 mmol/L (136-145)
[2022-11-15 08:07] LABS: ALBUMIN 0.9 g/dl (3.4-5.0)
[2022-11-15 08:08] LABS: BLOOD UREA NITROGEN 79.5 mg/dL (7-18); GLUCOSE,RANDOM 243 mg/dL (74-106); PHOSPHOROUS 4.8 mg/dL (2.5-4.9); SGPT/ALT 46 U/L (13-61)
[2022-11-15 08:09] LABS: CO2 13 mmol/L (21-32); MAGNESIUM 2.4 mg/dL (1.8-2.4); TOT PROT 4.2 g/dl (6.4-8.2)
[2022-11-15 08:10] LABS: BILIRUBIN,TOTAL 2.1 mg/dL (0.2-1)
[2022-11-15 08:11] LABS: ALK PHOS 173 U/L (45-117); CREATININE 2.1 mg/dL (0.55-1.3); SGOT/AST 111 U/L (15-37)
[2022-11-15 08:22] LABS: ANION GAP 14 MMOL/L (8-16); CALCIUM 6.6 mg/dL (8.5-10.1)
[2022-11-15] MEDS ORDERED: SODIUM ZIRCONIUM CYCLOSILICATE (LOKELMA) 5 GM PACKET PO ONE ×2 (08:31→13:30)
[2022-11-15 09:16] LABS: ANISOCYTOSIS 2+; MACROCYTOSIS 1+; OVALOCYTE 1+
[2022-11-15] MEDS: VASOPRESSIN 40 UNITS/100 ML BAG IV SCH ×2 (09:49→22:42)
[2022-11-15] MEDS: REMDESIVIR 100 MG in SODIUM CHLORIDE 250 ML IVPB SCH (09:50)
[2022-11-15] MEDS: SODIUM CHLORIDE 0.45% 1,000 ML IV SCH (09:50)
[2022-11-15] MEDS: PANTOPRAZOLE SODIUM 40 MG VIAL IVPUSH SCH (10:00)
[2022-11-15] MEDS: THIAMINE HCL 200 MG/2 ML VIAL IVPB SCH (10:00)
[2022-11-15] MEDS: levETIRAcetam 500 MG/5 ML INJECTION VIAL IVPB SCH ×2 (10:00→21:34)
[2022-11-15] MEDS: FOLIC ACID 1 MG TABLET (FP) PO SCH (10:00)
[2022-11-15] MEDS: METOPROLOL TARTRATE 25 MG TABLET (FP) PO SCH ×2 (10:00→21:35)
[2022-11-15] MEDS: NOREPINEPHRINE BITARTRATE 16,000 MCG in SODIUM CHLORIDE 484 ML IV SCH (11:00)
[2022-11-15] MEDS ORDERED: PIPERACILLIN/TAZOB 3.375 GM 3.375 GM in DEXTROSE 5%-WATER - 50 ML IVPB SCH (11:15)
[2022-11-15 11:59] LABS: CHLORIDE 111 mmol/L (98-107); SODIUM 138 mmol/L (136-145)
[2022-11-15 12:00] LABS: ANION GAP 12 MMOL/L (8-16); CO2 15 mmol/L (21-32); GLUCOSE,RANDOM 313 mg/dL (74-106)
[2022-11-15 12:01] LABS: BLOOD UREA NITROGEN 76.6 mg/dL (7-18)
[2022-11-15 12:04] LABS: CALCIUM 6.6 mg/dL (8.5-10.1); CREATININE 2.2 mg/dL (0.55-1.3)
[2022-11-15] MEDS ORDERED: VANCOMYCIN 1 GM in D5W (PRE-DOCKED) 1,000 MG/250 ML IVPB ONE (12:23)
[2022-11-15] MEDS ORDERED: VANCOMYCIN/WATER FOR INJ (PEG) 1,000 MG/200 ML BAG IVPB ONE (13:00)
[2022-11-15] MEDS: HYDROCORTISONE SOD SUCCINATE 100 MG/2 ML VIAL IVPB SCH ×2 (13:23→18:24)
[2022-11-15] MEDS: DOPAMINE 400 MG/D5W - 400,000 MCG/250 ML INFUS.BAG IVPB SCH ×2 (13:23→20:14)
[2022-11-15] MEDS: PIPERACILLIN/TAZOB 2.25 GM 2.25 GM in DEXTROSE 5%-WATER - 50 ML IVPB SCH (18:23)
[2022-11-15 20:49] VITALS: TEMP 96.9
[2022-11-15] MEDS: CHLORHEXIDINE GLUCONATE 4% CLEANSER FOR DECOLONIZATION TP SCH (21:34)
[2022-11-15] MEDS: ATORVASTATIN CA 40 MG TABLET (FP) NGT SCH (21:34)
[2022-11-15] MEDS: INSULIN (LEVEMIR) 100 UNITS/ML UNITS SQ SCH (21:47)
[2022-11-16] MEDS: NOREPINEPHRINE BITARTRATE 16,000 MCG in SODIUM CHLORIDE 484 ML IV SCH (00:14)
[2022-11-16] MEDS: PIPERACILLIN/TAZOB 2.25 GM 2.25 GM in DEXTROSE 5%-WATER - 50 ML IVPB SCH (02:33)
[2022-11-16] MEDS: HYDROCORTISONE SOD SUCCINATE 100 MG/2 ML VIAL IVPB SCH (02:33)
[2022-11-16] MEDS: DOPAMINE 400 MG/D5W - 400,000 MCG/250 ML INFUS.BAG IVPB SCH (05:15)
[2022-11-16 05:49] VITALS: BP 45/13
[2022-11-16] MEDS: INSULIN SLIDING SCALE (NOVOLOG) 1 VIAL SQ SCH (06:31)
[2022-11-16] MEDS: HEPARIN NA (PORCINE) 5,000 UNITS/ML 1ML VIAL SQ SCH (06:32)
[2022-11-16 07:58] VITALS: PULSE 48
[2022-11-16 08:00] LABS: CHLORIDE 109 mmol/L (98-107); SODIUM 133 mmol/L (136-145)
[2022-11-16 08:06] LABS: BLOOD UREA NITROGEN 75.4 mg/dL (7-18); CO2 9 mmol/L (21-32); GLUCOSE,RANDOM 205 mg/dL (74-106); MAGNESIUM 2.5 mg/dL (1.8-2.4)
[2022-11-16 08:08] LABS: SGPT/ALT 131 U/L (13-61)
[2022-11-16 08:09] LABS: CREATININE 2.5 mg/dL (0.55-1.3); SGOT/AST 443 U/L (15-37)
[2022-11-16 08:10] LABS: TOT PROT 3.3 g/dl (6.4-8.2)
[2022-11-16 08:11] LABS: BILIRUBIN,TOTAL 1.8 mg/dL (0.2-1)
[2022-11-16 08:12] LABS: ALK PHOS 171 U/L (45-117)
[2022-11-16 08:33] LABS: ALBUMIN 0.6 g/dl (3.4-5.0); ANION GAP 14 MMOL/L (8-16); CALCIUM 6.7 mg/dL (8.5-10.1); PHOSPHOROUS 8.5 mg/dL (2.5-4.9)
[2022-11-16] MEDS ORDERED: DEXTROSE 50%-WATER - 25 GM/50 ML VIAL IVPUSH ONE (08:37)
[2022-11-16] MEDS ORDERED: INSULIN REGULAR HUMAN 100 UNITS/ML *VIAL IVPUSH ONE (08:37)
[2022-11-16] MEDS ORDERED: CALCIUM GLUCONATE 10% - 1,000 MG/10 ML VIAL IVPUSH ONE (08:38)
[2022-11-16] MEDS ORDERED: SODIUM BICARBONATE 8.4% 50 MEQ/50 ML DISP.SYRIN IVPUSH SCH (08:45)
[2022-11-16 09:17] VITALS: RESP 19
[2022-11-16] MEDS ORDERED: SODIUM BICARBONATE 8.4% - 75 MEQ in SODIUM CHLORIDE 0.45% 950 ML IV SCH (09:30)
[2022-11-16] MEDS: VASOPRESSIN 40 UNITS/100 ML BAG IV SCH (09:43)
== END 2022-11-16 11:06 | disposition expired | DRG 207 ==
LOC: JER 14:41 → JERBED 18:25 → JICU 11-07 02:19
PROVIDERS: ADMIT Internal Medicine Pulmonary Disease; ATTEND Internal Medicine Pulmonary Disease
PROC: 0BH17EZ Insertion of Endotracheal Airway into Trachea, Via Natural or Artificial Opening (ICD-10-PCS; principal; 2022-11-06)
PROC: 5A1955Z Respiratory Ventilation, Greater than 96 Consecutive Hours (ICD-10-PCS; 2022-11-06)
PROC: XW033E5 Introduction of Remdesivir Anti-infective into Peripheral Vein, Percutaneous Approach, New Technology Group 5 (ICD-10-PCS; 2022-11-07)
PROC: 05HB33Z Insertion of Infusion Device into Right Basilic Vein, Percutaneous Approach (ICD-10-PCS; 2022-11-12)
PROC: B54MZZA Ultrasonography of Right Upper Extremity Veins, Guidance (ICD-10-PCS; 2022-11-12)
PROC: 05HM33Z Insertion of Infusion Device into Right Internal Jugular Vein, Percutaneous Approach (ICD-10-PCS; 2022-11-15)
PROC: B543ZZA Ultrasonography of Right Jugular Veins, Guidance (ICD-10-PCS; 2022-11-15)
DX: U07.1 COVID-19 (principal); G93.41 Metabolic encephalopathy; J12.82 Pneumonia due to coronavirus disease 2019; J96.01 Acute respiratory failure with hypoxia; R53.2 Functional quadriplegia; E43 Unspecified severe protein-calorie malnutrition; E87.0 Hyperosmolality and hypernatremia; R17 Unspecified jaundice; N39.0 Urinary tract infection, site not specified; N17.9 Acute kidney failure, unspecified; E87.20 Acidosis, unspecified; I47.20 Ventricular tachycardia, unspecified; G93.1 Anoxic brain damage, not elsewhere classified; R64 Cachexia; Z68.1 Body mass index [BMI] 19.9 or less, adult; R78.81 Bacteremia; D50.9 Iron deficiency anemia, unspecified; F03.90 Unspecified dementia, unspecified severity, without behavioral disturbance, psychotic disturbance, mood disturbance, and anxiety; R41.82 Altered mental status, unspecified; F32.A Depression, unspecified; G40.909 Epilepsy, unspecified, not intractable, without status epilepticus; D69.6 Thrombocytopenia, unspecified; R62.7 Adult failure to thrive; E87.6 Hypokalemia; R94.31 Abnormal electrocardiogram [ECG] [EKG]; E87.5 Hyperkalemia; R73.9 Hyperglycemia, unspecified
CPT/HCPCS: 0241U-QW; 36415; 36600; 70450-TC; 71045-TC-FY; 71275-TC; 80048; 80053; 80076; 81003; 82550; 82553; 82803; 82947; 82962; 83605; 83735; 83880; 83935; 84100; 84484; 85025; 85027; 85379; 85610; 85730; 86140; 87040; 87070; 87077; 87086; 87186; 87205; 93005; 93010; 93306-TC; 93970-TC; 94002; 99291; C9399; G0480; J1100; J1644; J3480; J3490; Q9967